=== PATIENT | female | born 1995 | race Caucasian/White ===

== ENCOUNTER 2018-01-14 10:34 | Inpatient (IN) | payer OTHER ==
[~2018-01-14] VITALS: Ht 170.2 cm; Wt 50.4 kg
[2018-01-14 10:50] VITALS: Ht 170.2 cm; Wt 50.4 kg
[2018-01-14 12:17] LABS: PLATELET COUNT 266 x10^3mcL (130-400); RED CELL DISTRIBUTION WIDTH 14.4 % (11.5-14.5)
[2018-01-14 12:18] LABS: T3 TOTAL 0.91 ng/mL
[2018-01-14 12:30] LABS: BASOPHIL % 0 % (0-2)
[2018-01-14 12:47] LABS: ALBUMIN 4.1 g/dL (3.4-5.0); ALKALINE PHOSPHATASE 53 U/L (46-116); ALT/SGPT 17 U/L (14-59); AST/SGOT 18 U/L (15-37); BILIRUBIN TOTAL 0.69 mg/dL (0.20-1.00); C REACTIVE PROTEIN 9.6 mg/dL (<=0.9); CALCIUM 8.8 mg/dL (8.5-10.1); CHLORIDE SERUM 104 mmol/L (98-107); CREATININE SERUM 0.7 mg/dL (0.6-1.0); GFR1 > 60 mL/min; GLUCOSE SERUM 116 mg/dL (74-106); POTASSIUM SERUM 3.4 mmol/L (3.5-5.1); SODIUM SERUM 139 mmol/L (136-145); TOTAL PROTEIN, SERUM 7.8 g/dL (6.4-8.2)
[2018-01-14 12:48] LABS: CK-MB < 0.5 ng/mL (0-3.6); CREATINE KINASE 46 U/L (26-192)
[2018-01-14 13:26] LABS: FREE T4 1.22 ng/dL (0.76-1.46); FREE THYROXINE INDEX 3.7 ug/dL (1.4-4.5); T4(THYROXINE) 11.5 ug/dL (4.7-13.3)
[2018-01-14 13:53] LABS: ERYTHROCYTE SED RATE 14 mm/hr (0-20)
[2018-01-14 14:46] LABS: UA SPECIFIC GRAVITY <=1.005 (1.005-1.035); microscopic required? YES; urine erythrocyte 3+ (NEGATIVE)
[2018-01-14 16:36] LABS: MAGNESIUM 1.8 mg/dL (1.8-2.4); PHOSPHOROUS 3.6 mg/dL (2.5-4.9)
[2018-01-14 16:47] LABS: CHOLESTEROL/HDL RATIO 1.7
[2018-01-14 17:11] VITALS: BP 104/69; BP 104/692
[2018-01-14 21:30] VITALS: BP 104/66
[2018-01-14 22:34] LABS: AMPHETAMINE QUAL UR NONE DETECTED (See below)
[2018-01-15 05:14] VITALS: BP 106/62
[2018-01-15 06:50] LABS: CALCIUM 8.3 mg/dL (8.5-10.1); CARBON DIOXIDE 21.7 mmol/L (21-32); CHLORIDE SERUM 106 mmol/L (98-107); CREATININE SERUM 0.6 mg/dL (0.6-1.0); GFR1 > 60 mL/min; GLUCOSE SERUM 64 mg/dL (74-106); PHOSPHOROUS 3.5 mg/dL (2.5-4.9); POTASSIUM SERUM 3.4 mmol/L (3.5-5.1); SODIUM SERUM 139 mmol/L (136-145)
[2018-01-15 06:51] LABS: BASOPHIL % 0.1 % (0-2); PLATELET COUNT 223 x10^3mcL (130-400)
[2018-01-15 09:44] VITALS: BP 101/62
[2018-01-15 11:27] VITALS: BP 101/62
== END 2018-01-15 14:54 | disposition home or self-care (01) | DRG 760 ==
LOC: ED 10:34 → MU 16:06
PROVIDERS: Internal Medicine; Specialist
DX: N83.202 Unspecified ovarian cyst, left side (principal); Z68.1 Body mass index [BMI] 19.9 or less, adult; R65.10 Systemic inflammatory response syndrome (SIRS) of non-infectious origin without acute organ dysfunction; N83.201 Unspecified ovarian cyst, right side; R63.6 Underweight; Z90.710 Acquired absence of both cervix and uterus; Z82.49 Family history of ischemic heart disease and other diseases of the circulatory system
CPT/HCPCS: 84439; J1885; J2405; J2543; J3010; J7030; Q0092; Q0162; Q9967